=== PATIENT | female | born 1960 ===

== ENCOUNTER 2016-11-18 09:03 | Day surgery (SDC) | payer OTHER ==
[~2016-11-18 09:03] MED LIST: LACTATED RINGERS 1,000 ML IV.SOLN IV ONE; PROPOFOL 500 MG/50 ML VIAL IV ONE; SALINE FLUSH 10 ML DISP.SYRIN IVF ONE
--- NOTE | 2016-11-19 08:29 | Operative Note ---
SURGEON: Luciano Joiner MD ANESTHESIA: MAC anesthesia. ESTIMATED BLOOD LOSS: None. COMPLICATIONS: None. PREOPERATIVE DIAGNOSIS: Screening colonoscopy. POSTOPERATIVE DIAGNOSIS: Normal colonoscopy. PROCEDURE PERFORMED: Colonoscopy to cecum. INDICATIONS FOR PROCEDURE: This is a 56-year-old woman who presents for a screening colonoscopy. DESCRIPTION OF PROCEDURE: Patient was brought to the endoscopy suite and placed in the left lateral decubitus position. Anesthesia was administered by the insert operator. A rectal exam was performed which was normal. The colonoscope was inserted and passed easily to the cecum. The appendiceal orifice and ileocecal valve were identified. The prep was good. The colonoscope was slowly retracted being careful to inspect all [place]. No polyps or other lesions were noted. There was a greater than 6 minute withdrawal time. The colonoscope was removed. The patient tolerated the procedure well. FINDINGS: Normal exam. DISPOSITION: I recommend repeat colonoscopy in 10 years. cc: Dr. Neema WONG
== END 2016-11-18 09:04 ==
LOC: OPSURG 09:03
PROVIDERS: ATTEND Colon & Rectal Surgery
DX: Z12.11 Encounter for screening for malignant neoplasm of colon (principal)
CPT/HCPCS: J2704; J7120; 45378; S1016